=== PATIENT | female | born 1930 | race Caucasian/White ===

== ENCOUNTER 2017-12-14 10:29 | Emergency (ER) | payer OTHER ==
[~2017-12-14] VITALS: Ht 157.5 cm; Wt 78.5 kg
[2017-12-14] MEDS ORDERED: KETOROLAC TROMETHAMINE 30 MG/ML VIAL IV STA (10:38)
[2017-12-14] MEDS ORDERED: METAXALONE 800 MG TAB PO ONE (10:45)
[2017-12-14] MEDS ORDERED: DEXAMETHASONE SOD PHOS 10 MG/1 ML VIAL IV ONE (10:45)
--- NOTE | 2017-12-14 12:22 | Diagnostic Imaging Report ---
PROCEDURE:L-SPINE COMPLETE COMPARISON:None. INDICATIONS:LEFT SIDE SCIATICA PAIN FINDINGS: Diffuse osseous demineralization. There are five lumbar-type vertebral bodies. The vertebral bodies are well-aligned without evidence of spondylolisthesis. There are no fractures, lytic or blastic lesions. Moderate disc space narrowing at L4-L5. Mild disc space narrowing of the remaining disc spaces. Moderate facet arthrosis of the lower lumbar spine. The sacroiliac joints are unremarkable. Vascular calcifications are noted. CONCLUSION: Degenerative changes as above, worse at L4-L5. Dictated by: Chad Perry M.D. on 12/14/2017 at 12:23 Electronically approved by: Chad Perry M.D. on 12/14/2017 at 12:23
[2017-12-14] MEDS ORDERED: HYDROCODONE/APAP 5MG-325MG TAB PO ONE (12:30)
== END 2017-12-14 13:22 | disposition home or self-care (01) ==
LOC: ER 10:29
DX: M51.17 Intervertebral disc disorders with radiculopathy, lumbosacral region (principal); M54.42 Lumbago with sciatica, left side
CPT/HCPCS: 72110; 99284; J1100; J1885

== ENCOUNTER 2018-06-03 14:22 | Observation (INO) | payer OTHER ==
[~2018-06-03] VITALS: Ht 162.6 cm; Wt 77.6 kg
[2018-06-03] MEDS ORDERED: NIFEDIPINE ER30 M1 PO (15:56)
[2018-06-03] MEDS ORDERED: HYDROCHLOROTHIA25 MG (15:57)
[2018-06-03] MEDS ORDERED: LABETALOL HCL200 MG PO (15:57)
[2018-06-03] MEDS ORDERED: ATORVASTATIN CA20 MG PO (15:58)
--- NOTE | 2018-06-03 16:15 | Diagnostic Imaging Report ---
EXAM: XR CHEST 2 VIEWS DATE: 06/03/2018 12:00 AM INDICATION: Lightheaded COMPARISON: None FINDINGS: Lines and Tubes: None Heart and Mediastinum: Heart not enlarged. Aortic vascular calcifications and tortuous descending thoracic aorta. Lungs and Pleura: Mild apical scarring, most notably on the left. No pneumothorax or significant pleural effusion. Minimal opacities lung bases. Bones and Soft Tissues: No acute findings. IMPRESSION: 1. Probable basilar atelectasis. Signed by: Dr. José Burrell MD on 06/03/2018 4:11 PM
--- NOTE | 2018-06-03 16:27 | Diagnostic Imaging Report ---
Exam: Head CT without contrast Indication: An 88-year-old F with lightheadedness. Comparisons: None Technique: Axial images were obtained from the skull base to the vertex. Coronal and sagittal images reconstructed from the axial data. Dose modulation, iterative reconstruction, and/or weight based adjustment of the mA/kV was utilized to reduce the radiation dose to as low as reasonably achievable. Intravenous contrast: None Findings: Exam quality: Somewhat limited secondary metallic artifact from prior craniotomy. Scalp/skull: Surgical changes from prior left pterional craniotomy. Extra-axial spaces: No masses. No fluid collections. Brain sulci: Mildly prominent. Ventricles: Mild compensatory dilatation. No hydrocephalus. Parenchyma: A metallic aneurysmal clip is regional to the left anterior cerebral artery and anterior commuting artery complex. Surgical changes from prior left frontal craniotomy include encephalomalacia and gliosis of the left tracheostomy and left anterior temporal pole. Additional confluent hypodensities in the supratentorial white matter are small vessel ischemic changes. Otherwise, no masses, hemorrhage, acute or chronic cortical vascular insults. Sellar/suprasellar region: No abnormalities. Craniocervical junction: Patent foramen magnum. No Chiari one malformation. Incidental findings: Atherosclerotic calcifications in the carotid siphons. Partially visualized bilateral lens hypodensity. Impression: No acute abnormalities. Chronic findings: Surgical changes presumably from prior aneurysm repair. Moderate supratentorial white matter small vessel ischemic changes. Mild generalized volume loss Signed by: DR Azeem Smith M.D. on 06/03/2018 4:40 PM
[2018-06-03] MEDS ORDERED: ASPIRIN 81 MG CHEW TAB PO ONE (17:00)
[2018-06-03 20:20] VITALS: BP 147/73
[2018-06-03] MEDS ORDERED: VITAMIN D22000 UNIT PO (21:08)
[2018-06-03] MEDS ORDERED: CILOSTAZOL100 MG PO (21:08)
[2018-06-03] MEDS ORDERED: PROPAFENONE HC325 MG PO (21:08)
[2018-06-03] MEDS ORDERED: ULTRAM50 MG PO (21:08)
[2018-06-03 21:15] VITALS: BP 147/73
[2018-06-03] MEDS ORDERED: TRAMADOL HCL 50 MG TAB PO PRN (21:15)
[2018-06-03] MEDS ORDERED: ERGOCALCIFEROL 1.25 MG PO SCH (21:15)
[2018-06-04] VITALS (7 sets, daily range): BP systolic 147–190; BP diastolic 65–80
[2018-06-04] MEDS: PROPAFENONE HCL 150 MG TAB PO SCH ×3 (00:17→20:15)
[2018-06-04 00:54] LABS: CREATINE KINASE MB 0.9 ng/mL (0-5.0)
[2018-06-04] MEDS: NIFEDIPINE CR 30 MG TAB PO SCH (08:23)
[2018-06-04] MEDS: LABETALOL HCL 200 MG TAB PO SCH ×2 (08:23→17:04)
[2018-06-04] MEDS: HYDROCHLOROTHIAZIDE 25 MG TAB PO SCH (08:23)
[2018-06-04] MEDS ORDERED: CILOSTAZOL 100 MG TAB PO SCH (09:00)
[2018-06-04] MEDS ORDERED: ASPIRIN 81 MG ENTERIC COATED PO SCH (09:00)
[2018-06-04] MEDS ORDERED: IPRATROPIUM/ALBUTEROL SULFATE 4 GM INH INH PRN (15:00)
--- NOTE | 2018-06-04 18:29 | History and Physical ---
PRIMARY CARE PHYSICIAN: Dr. Shayan Mario CONSULTANTS: CHIEF COMPLAINT: Dizziness, atrial fibrillation, and low blood pressure. HISTORY OF PRESENT ILLNESS: An 88-year-old female that came to outpatient urgent care with low blood pressure. The patient had workup done. Her potassium was 5.2, BUN and creatinine of 41 and 2.5 respectively. Patient's heart rate was low per patient along with the blood pressure. Her WBC was 9, hemoglobin and hematocrit is 10 and 31.5 respectively. She is on multiple blood pressure medications. She does have atrial fibrillation but because of her brain aneurysm previously, the patient is not on any anticoagulant therapy, on a matter of fact, she is on antiplatelet. The patient is otherwise stable. Echocardiogram showed ejection fraction of approximately 45% to 50%. The patient refused CT scan of the chest. EKG in the emergency room showed atrial fibrillation with rate of approximately 69 to 70. The patient is otherwise stable at this time. She is wearing oxygen chronically. 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 PAST SURGICAL HISTORY: Noncontributory other than the aneurysm repair in 1994 and recent clipping. SOCIAL HISTORY: The patient is a smoker for many years. She quit approximately 23 years ago; however. ALLERGIES: TO SULFA, CODEINE, PENICILLIN. HOME MEDICATIONS: List is reviewed. REVIEW OF SYSTEMS: Much improved now. PHYSICAL EXAMINATION VITAL SIGNS: Temperature is 97, blood pressure 171/71, pulse rate 86, respirations 18. GENERAL: The patient is not in acute distress. She is awake. HEENT: Normocephalic, atraumatic. NECK: Supple grossly. PULMONARY: Diminished breath sounds, but no wheezing or rales. CARDIOVASCULAR: S1, S2. Atrial fibrillation, rate controlled. ABDOMEN: Soft, unremarkable. EXTREMITIES: No cyanosis or edema. NEUROLOGIC: No gross focal deficit. LABORATORY: As mentioned above. IMPRESSION 1. Atrial fibrillation, rate controlled. 2. Hypotension, etiology unclear. 3. Dizziness, spells. PLAN: Carotid Doppler echocardiogram. Continue with home medications. Adjust the medication if needed. We will monitor the patient closely. Consultation with . We will see the patient in the morning. Dr. Caballero already saw the patient for coverage. Patient is otherwise stable. Echocardiogram showed ejection fraction of 50%. EKG showed atrial fibrillation, which is chronically at 69 beats per minute. We will continue to monitor the patient closely. Thank you. Job#: [id number] KATHERINE
[2018-06-04] MEDS ORDERED: ATORVASTATIN 20 MG TAB PO SCH (21:00)
[2018-06-05] VITALS (9 sets, daily range): BP systolic 123–147; BP diastolic 59–80
[2018-06-05 05:26] LABS: ANION GAP 14.5 mmol/L (8-16); CALCIUM 8.3 mg/dL (8.4-10.2); CREATININE, SERUM 2.58 mg/dL (0.57-1.11); POTASSIUM 4.5 mmol/L (3.5-5.1)
[2018-06-05] MEDS: CILOSTAZOL 100 MG TAB PO SCH ×2 (07:27→16:35)
[2018-06-05] MEDS: NIFEDIPINE CR 30 MG TAB PO SCH (08:25)
[2018-06-05] MEDS: PROPAFENONE HCL 150 MG TAB PO SCH ×2 (08:25→21:01)
[2018-06-05] MEDS: LABETALOL HCL 200 MG TAB PO SCH ×2 (08:25→17:08)
[2018-06-05] MEDS: HYDROCHLOROTHIAZIDE 25 MG TAB PO SCH (08:25)
[2018-06-05] MEDS ORDERED: ERGOCALCIFEROL 50,000 UNIT CAP PO SCH (09:00)
[2018-06-05] MEDS: ASPIRIN 81 MG ENTERIC COATED PO SCH (09:06)
[2018-06-05] MEDS ORDERED: ATORVASTATIN 40 MG TAB PO SCH (21:00)
[2018-06-06] VITALS: BP 115/50
[2018-06-06 04:00] VITALS: BP 142/60
[2018-06-06] MEDS: CILOSTAZOL 100 MG TAB PO SCH (07:34)
[2018-06-06 08:20] VITALS: BP 147/67
[2018-06-06] MEDS: ASPIRIN 81 MG ENTERIC COATED PO SCH (08:24)
[2018-06-06] MEDS: HYDROCHLOROTHIAZIDE 25 MG TAB PO SCH (08:24)
[2018-06-06] MEDS: PROPAFENONE HCL 150 MG TAB PO SCH (08:25)
[2018-06-06] MEDS: LABETALOL HCL 200 MG TAB PO SCH (08:25)
[2018-06-06] MEDS: NIFEDIPINE CR 30 MG TAB PO SCH (08:26)
--- NOTE | 2018-06-06 11:36 | Discharge Summary ---
PRIMARY CARE PHYSICIAN: Dr. Shayan Mario. PROGRAM MANAGEMENT INTERN: Dr. Curtis Whitney. Patient in observation. FINAL DIAGNOSES 1. Dizzy spell per patient. 2. Possible anxiety disorder/panic attack. 3. Episode of bradycardia associated with atrial fibrillation and now rate controlled. 4. Multiple chronic baseline medical problems. SUMMARY: Patient is an 88-year-old female with known atrial fibrillation with occasional rapid rate, but no bradycardia. The patient apparently when she came in, she was bradycardic at home but in the emergency room, her heart rate was in the 60s to 70s beats with atrial fibrillation. Patient has history of a brain aneurysm repair. She is on baby aspirin a day. The patient is stable. Echocardiogram showed ejection fraction of 50%. Carotid Doppler, there is no significant blockage. CT brain, there is no bleed. The patient is otherwise stable. She had an episode of feeling like her palpitation and increasing heart rate, but the monitor showed that she had stable heart rate with atrial fibrillation. Patient's vital signs are stable. Blood pressure remained stable as well. Overall, there are no significant changes. She has been resumed on home medication. Discharged the patient on Xanax 0.25 mg half a tab q.6 hours as needed and Ecotrin 81 mg daily and resume home medications. Patient will be discharged home today. Follow up with Dr. Whitney as an outpatient. The patient expressed understanding. Discussed with the patient at length. Job#: [id number] GEOVANNA
[2018-06-06 12:28] VITALS: BP 105/51
[2018-06-06 12:45] VITALS: BP 105/51
[2018-06-06] MEDS ORDERED: XANAX0.25 MG PO (15:48)
[2018-06-06] MEDS ORDERED: ASPIR 8181 MG PO (15:50)
== END 2018-06-06 16:02 | disposition home or self-care (01) ==
LOC: FSED 14:22 → ERHOLD 17:39 → UNDOADMIN 17:39 → ERHOLD 18:55 → IMCU 20:27
PROVIDERS: ADMIT Internal Medicine; ATTEND Internal Medicine
DX: I48.0 Paroxysmal atrial fibrillation (principal); R42 Dizziness and giddiness; I95.9 Hypotension, unspecified; D64.9 Anemia, unspecified; Z88.5 Allergy status to narcotic agent; Z88.0 Allergy status to penicillin; Z88.2 Allergy status to sulfonamides; I73.9 Peripheral vascular disease, unspecified; J44.9 Chronic obstructive pulmonary disease, unspecified; Z87.891 Personal history of nicotine dependence; Z91.81 History of falling; Z79.02 Long term (current) use of antithrombotics/antiplatelets; I12.9 Hypertensive chronic kidney disease with stage 1 through stage 4 chronic kidney disease, or unspecified chronic kidney disease; N18.3 Chronic kidney disease, stage 3 (moderate)
CPT/HCPCS: 36415 ×2; 70450; 71046; 80048; 80053; 82550; 82552; 82553; 84443; 84484 ×2; 85025; 85610; 93005; 93306; 93880; 99284; G0378 ×4